=== PATIENT | male | born 1965 | race Caucasian/White ===

== ENCOUNTER 2018-02-24 16:58 | Inpatient (IN) ==
[2018-02-25] MEDS: Sod Chloride 0.9% Inj 1,000 ML IV.CONT SCH ×4 (00:07→18:22)
[2018-02-25] MEDS: HYDROmorphone PF Inj 2 MG/ML Vial IV.PUSH PRN ×6 (00:07→22:05)
[2018-02-25] MEDS: Enoxaparin Inj 40 MG/0.4 ML Syringe SQ SCH ×2 (02:05→22:06)
[2018-02-25 07:03] LABS: Baso % (Auto) 0.2 % (0.0-2.0); Eos % (Auto) 0.1 % (0.0-4.0); Hematocrit 42.6 % (39.0-51.0); Lymph # (Auto) 1.5 th/mm3 (1.0-4.8); Lymph % (Auto) 6.8 % (9.0-44.0); Mean Corpuscular HGB Conc 35.1 % (32.0-36.0); Mean Corpuscular Hemoglobin 33.5 pg (27.0-34.0); Mean Corpuscular Volume 95.4 fL (80.0-100.0); Mean Platelet Volume 8.4 fL (7.0-11.0); Mono # (Auto) 1.6 th/mm3 (0.0-0.9); Neut # (Auto) 19.1 th/mm3 (1.8-7.7); Neut % (Auto) 85.9 % (16.0-70.0); Platelet Count 382 th/mm3 (150-450); Red Blood Count 4.47 mil/mm3 (4.50-5.90); Red Cell Distribution Width 14.8 % (11.6-17.2); White Blood Count 22.2 th/mm3 (4.0-11.0)
[2018-02-25 07:06] LABS: Potassium 4.6 meq/L (3.5-5.1)
[2018-02-25 07:10] LABS: Calcium 8.1 mg/dL (8.5-10.1); Carbon Dioxide 27.8 meq/L (21.0-32.0)
--- NOTE | 2018-02-25 09:04 | P.HP ---
History of Present Illness Primary Care Physician: No Primary Care Physician Chief Complaint: Abdominal pain History of Present Illness: This is a 52-year-old male patient with a known medical history of alcoholism and previous diverticulitis with perforation and history of pancreatitis who presented to the ED with diffuse abdominal pain 3 weeks. It is [place]- speaking and [employer] video interpreting has been used to assist with interpretation. Patient states that his abdominal pain worsened acutely yesterday, he states that the pain is diffuse in his abdomen and worsens in his right lower quadrant. Patient states that the pain is worse with movement. States he did take Tylenol 3 and Pepto-Bismol at home with minimal relief of his pain. He does admit to nausea with one bout of vomiting yesterday. He admits to drinking 4 beers a day since his teen years. Denies ever having withdrawal from alcohol. He does admit to a bout of acute pancreatitis 10 years ago and history of diverticulitis roughly 5 years ago, at that time he did have a perforation of his colon and he required bowel resection. 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 He denies any recent fever, chills, cough, shortness of breath, diarrhea or dysuria. History of CAD with PA several years ago with no stent placement. He does take his medications daily. Including an aspirin. His last drink was Saturday. Lipase on presentation 1007. - Diagnosis (1) Acute pancreatitis Review of Systems All other systems reviewed negative except as stated in HPI PMFSH - History History Provided By: Patient - Medical History Medical History: Medical History (Last Updated 02/25/18 @ 09:18 by Eliz Pickett) Alcoholism Asthma Colonoscopy planned Diverticulitis Hypertension Pancreatitis - Surgical History Surgical History: Surgical History (Last Updated 02/24/18 @ 17:02 by Eliz Lin, RN) H/O eye surgery - Family History Family History: Family History (Last Updated 02/25/18 @ 09:17 by Eliz Pickett) Mother Breast cancer - Tobacco History Second Hand Smoke Exposure: Yes Tobacco Use In Past 30 Days: Yes Smoking Status: Smoker, status unknown Tobacco Type: Cigarettes - Alcohol History How Often Do You Have a Drink Containing Alcohol: 4 or more times a week - Substance Use History Substance History: Active Abuse - Substance Use Type Alcohol Status: Active Route Used: By Mouth Frequency: 3-4 per day Last Used: yesterday Reason for Use: Calm Down, Fit In, Peer Pressure - Immunization History Tetanus Immunization: Unable to Assess Hx Influenza Vaccine This Season: Yes Medications and Allergies Active Medications: Active Medications Albuterol (Albuterol Neb (Prn)) 2.5 mg NEB Q2HR NEB PRN PRN Reason: SHORTNESS OF BREATH/WHEEZING Enoxaparin Sodium (Lovenox Inj) 40 mg SQ Q24H ANIA Last Admin: 02/25/18 02:05 Dose: 40 mg Hydromorphone HCl (Dilaudid Pf Inj) 0.5 mg IV.PUSH Q4H PRN PRN Reason: pain > 4 Last Admin: 02/25/18 08:04 Dose: 0.5 mg Sodium Chloride (Ns Inj) 1,000 mls @ 100 mls/hr IV.CONT .Q10H [facility] Last Admin: 02/25/18 08:05 Dose: 100 mls/hr Ondansetron HCl (Zofran Inj) 4 mg IV.PUSH Q6H PRN PRN Reason: NAUSEA OR VOMITING Allergies Allergy/AdvReac Type Severity Reaction Status Date / Time morphine Allergy Agitation Verified 02/24/18 17:27 Penicillins Allergy Rash, Verified 02/24/18 17:27 Generalized Home Medications Medication Instructions Recorded Confirmed Type aspirin [Adult Low Dose Aspirin] 81 mg PO DAILY 02/24/18 02/25/18 History atorvastatin [Lipitor] 10 mg PO DAILY 02/24/18 02/25/18 History lactobacillus combination no.4 1 dose PO DAILY 02/24/18 02/25/18 History [Probiotic] lisinopril 40 mg PO DAILY 02/24/18 02/25/18 History metoprolol tartrate 50 mg PO DAILY 02/24/18 02/25/18 History montelukast 10 mg PO QPM 02/25/18 02/25/18 History Exam Vital signs: Vital Signs 02/25/18 00:00 02/25/18 00:33 02/25/18 04:36 Temperature 98.4 F 99.8 F H Pulse Rate 119 H 112 H Respiratory Rate 18 18 20 Blood Pressure 183/118 H 144/97 H Pulse Oximetry 96 92 L 02/25/18 08:44 Temperature 98.5 F Pulse Rate 116 H Respiratory Rate 18 Blood Pressure 144/95 H Pulse Oximetry 94 L Intake & Output 02/24/18 02/25/18 02/25/18 18:59 06:59 18:59 Intake Total 200 / 200 1000 / 1000 Balance 200 / 200 1000 / 1000 Weight 84.3 kg Intake: IV 1000 / 1000 NS Inj 1,000 ML @ 100 mls/hr IV 1000 / 1000 .CONT .Q10H ANIA Rx#:[id number] Oral 200 / 200 Other: # Voids 2 Date of Last Bowel Movement 02/23/18 Weight On Admission 84.3 kg Narrative: GENERAL: Well-developed, well-nourished patient in NAD. SKIN: Warm and dry. No rash. Mild jaundice. HEAD: Normocephalic. Atraumatic. EYES: Pupils equal and round. No scleral icterus. No injection or drainage. ENT: No nasal bleeding or discharge. Mucous membranes pink and moist. NECK: Supple. Trachea midline. CARDIOVASCULAR: Regular rate and rhythm. S1, S2 noted. No murmur appreciated. RESPIRATORY: No accessory muscle use. Clear to auscultation. Breath sounds equal bilaterally. GASTROINTESTINAL: Abdomen soft, round, firm. Mild tenderness to right upper lower quadrant.. Normoactive bowel sounds x4. MUSCULOSKELETAL: No obvious deformities. Extremities without clubbing, cyanosis , or edema. NEUROLOGICAL: Awake and alert. No obvious cranial nerve deficits. Motor grossly within normal limits. 5/5 muscle strength in bilateral upper and lower extremities. Normal speech. PSYCHIATRIC: Appropriate mood and affect; insight and judgment normal. Results - Labs CBC & Chem 7: 02/25/18 06:10 02/25/18 06:10 Labs: Laboratory Results - last 24 hr 02/25/18 02/25/18 06:10 06:10 CBC w Diff Slide review pending WBC 22.2 H RBC 4.47 L Hgb 15.0 Hct 42.6 MCV 95.4 MCH 33.5 MCHC 35.1 RDW 14.8 Plt Count 382 MPV 8.4 Neut % (Auto) 85.9 H Lymph % (Auto) 6.8 L [place] % (Auto) 7.0 Eos % (Auto) 0.1 Baso % (Auto) 0.2 Neut # (Auto) 19.1 H Lymph # (Auto) 1.5 [place] # (Auto) 1.6 H Eos # (Auto) 0.0 Baso # (Auto) 0.0 WBC Differential . Diff Scan Auto diff confirmed Differential Comment . Sodium 135 L Potassium 4.6 Chloride 100 Carbon Dioxide 27.8 Anion Gap 7 BUN 8 Creatinine 0.98 Estimated GFR 80 L Random Glucose 121 H Calcium 8.1 L Lipase 1007 H Caprini VTE Risk Assessment Caprini VTE Risk Assessment: No/Low Risk (score <= 1) Caprini Risk Assessment Model: Point Value = 1 Point Value = 2 Point Value = 3 Point Value = 5 Age 41-60 Minor surgery BMI > 25 kg/m2 Swollen legs Varicose veins or History of unexplained or recurrent spontaneous Oral contraceptives or hormone replacement Sepsis (< 1 month) Serious lung disease, including pneumonia (< 1 month) Abnormal pulmonary function Acute myocardial infarction Congestive heart failure (< 1 month) History of inflammatory bowel disease Medical patient at bed rest Age 61-74 Arthroscopic surgery Major open surgery (> 45 min) Laparoscopic surgery (> 45 min) Malignancy Confined to bed (> 72 hours) Immobilizing plaster cast Central venous access Age >= 75 History of VTE Family history of VTE Factor V Leiden Prothrombin [id number] Lupus anticoagulant Anticardiolipin antibodies Elevated serum homocysteine Heparin-induced thrombocytopenia Other congenital or acquired thrombophilia Stroke (< 1 month) Elective arthroplasty Hip, pelvis, or leg fracture Acute spinal cord injury (< 1 month) Prophylaxis Regimen: Total Risk Factor Score Risk Level Prophylaxis Regimen 0-1 Low Early ambulation 2 Moderate Order ONE of the following: *Sequential Compression Device (SCD) *Heparin 5000 units SQ BID 3-4 Higher Order ONE of the following medications: *Heparin 5000 units SQ TID *Enoxaparin/Lovenox 40 mg SQ daily (WT < 150 kg, CrCl > 30 mL/min) *Enoxaparin/Lovenox 30 mg SQ daily (WT < 150 kg, CrCl > 10-29 mL/min) *Enoxaparin/Lovenox 30 mg SQ BID (WT < 150 kg, CrCl > 30 mL/min) AND/OR *Sequential Compression Device (SCD) 5 or more Highest Order ONE of the following medications: *Heparin 5000 units SQ TID (Preferred with Epidurals) *Enoxaparin/Lovenox 40 mg SQ daily (WT < 150 kg, CrCl > 30 mL/min) *Enoxaparin/Lovenox 30 mg SQ daily (WT < 150 kg, CrCl > 10-29 mL/min) *Enoxaparin/Lovenox 30 mg SQ BID (WT < 150 kg, CrCl > 30 mL/min) AND *Sequential Compression Device (SCD) Assessment and Plan - Assessment (1) Acute pancreatitis Code(s): K85.90 - Acute pancreatitis without necrosis or infection, unspecified Status: Acute - Plan This is a 51-year-old male patient with: Acute pancreatitis suspect secondary to chronic alcoholism -Patient presented with abdominal pain, nausea and vomiting. Secondary to alcoholism. Lipase 1700 on presentation, trending down. -Abdominal CT obtained in ED and reviewed showing pseudocyst with findings of acute pancreatitis. -Patient states that the pseudocyst is chronic and was present 10 years ago on exam. -Pain control with Dilaudid IV as needed per pain scale. -Liquid diet. Continue IV fluids. -Supportive care. Sepsis -Met criteria with tachycardia and leukocytosis, white blood cell 22,000. No fevers. -This is likely secondary to acute pancreatitis and stress response. Will continue to monitor. -Will rule out any infection. Add CXR, UA and blood cultures. Follow growth. Add lactic acid. -Tachycardia noted, HR 110's. Restarted home metoprolol. Continue to monitor tele. Should improve. Continue IVF. -Follow CBC in am. Hypertension, chronic -Monitor BP trends. Continue home medications. Alcoholism Elevated LFTs -Encourage alcohol cessation. -Placed on CIWA protocol, monitor for any withdrawals. DVT prophylaxis: SCDs. Ambulation. Lovenox. Discharge Planning: Awaiting clinical improvement and sepsis workup.
[2018-02-25] MEDS ORDERED: Metoprolol Tartrate 50 MG Tablet PO ONE (09:10)
[2018-02-25] MEDS ORDERED: Lisinopril 20 MG Tablet PO ONE (09:10)
[2018-02-25] MEDS: Lactobacillus Acidophilus/L. Spores Tablet PO SCH (09:23)
[2018-02-25] MEDS: Metoprolol Tartrate 50 MG Tablet PO SCH (09:23)
[2018-02-25] MEDS: Lisinopril 20 MG Tablet PO SCH (09:24)
[2018-02-25 10:13] LABS: Albumin 2.8 g/dL (3.4-5.0)
[2018-02-25 10:18] LABS: Total Protein 7.2 g/dL (6.4-8.2)
--- NOTE | 2018-02-25 13:24 | XR ---
EXAM DATE: 02/25/2018 1:05 PM EDT AGE/SEX: 52 years / Male INDICATIONS: Short of breath. CLINICAL DATA: This is the patient's subsequent encounter. Patient reports that signs and symptoms h ave been present for 3 days and indicates a pain score of 0/10. MEDICAL/SURGICAL HISTORY: Asthma. Hypertension. None. COMPARISON: No prior exams available for comparison. FINDINGS: A single AP view of the chest demonstrates the lungs to be symmetrically aerated without evidence of mass, infiltrate or effusion. The cardiomediastinal contours are unremarkable. Osseous structures a re intact. Mild interstitial lung disease left lung base CONCLUSION: Mild interstitial lung disease left lung base. Otherwise unremarkable single view the chest Electronically signed by: Carlos Kenny MD 02/25/2018 1:22 PM EDT
[2018-02-25] MEDS ORDERED: Temazepam 15 MG Capsule PO PRN (15:07)
[2018-02-25 16:01] LABS: Bilirubin,Urine Negative (Negative); Clarity,Urine Clear (Clear); Color,Urine Yellow (Yellw/Straw); Glucose,Urine (UA) Negative (Negative); Leukocyte Esterase,Urine Negative (Negative); Nitrite,Urine Negative (Negative); PH,Urine 7.5 (5.0-8.5)
[2018-02-25 16:05] LABS: RBC,Urine 0-3 /hpf (0-3); Squamous Epithelial Cell,Urine 0-5 /hpf (0-5)
[2018-02-25] MEDS: Acetaminophen 325 MG Tablet PO PRN (21:15)
[2018-02-25] MEDS: Montelukast 10 MG Tablet PO SCH (21:16)
[2018-02-26] MEDS: HYDROmorphone PF Inj 2 MG/ML Vial IV.PUSH PRN ×2 (02:41→14:03)
[2018-02-26] MEDS: Sod Chloride 0.9% Inj 1,000 ML IV.CONT SCH ×2 (05:41→16:23)
[2018-02-26 06:34] LABS: Baso # (Auto) 0.1 th/mm3 (0.0-0.2); Baso % (Auto) 0.6 % (0.0-2.0); Eos # (Auto) 0.1 th/mm3 (0.0-0.4); Eos % (Auto) 0.6 % (0.0-4.0); Hematocrit 39.7 % (39.0-51.0); Hemoglobin 13.5 gm/dL (13.0-17.0); Lymph # (Auto) 1.5 th/mm3 (1.0-4.8); Lymph % (Auto) 7.6 % (9.0-44.0); Mean Corpuscular HGB Conc 34.1 % (32.0-36.0); Mean Corpuscular Hemoglobin 33.3 pg (27.0-34.0); Mean Corpuscular Volume 97.6 fL (80.0-100.0); Mono # (Auto) 1.4 th/mm3 (0.0-0.9); Mono % (Auto) 6.9 % (0.0-8.0); Neut # (Auto) 16.9 th/mm3 (1.8-7.7); Neut % (Auto) 84.3 % (16.0-70.0); Platelet Count 303 th/mm3 (150-450); Red Blood Count 4.06 mil/mm3 (4.50-5.90); Red Cell Distribution Width 14.1 % (11.6-17.2)
[2018-02-26 06:57] LABS: Platelet Estimate Normal (Normal); Platelet Morphology Normal (Normal); RBC Morphology Normal (Normal)
[2018-02-26] MEDS: Metoprolol Tartrate 50 MG Tablet PO SCH (08:47)
[2018-02-26] MEDS: Lisinopril 20 MG Tablet PO SCH (08:47)
[2018-02-26] MEDS: Lactobacillus Acidophilus/L. Spores Tablet PO SCH (08:47)
--- NOTE | 2018-02-26 09:25 | P.PNIM ---
Subjective Interval history: Follow-up acute pancreatitis and sepsis. Patient seen and examined, lying in bed comfortably no apparent distress. Patient states he feels much improved today. His pain is well controlled with prescribed pain medications. He is tolerating clear liquid diet. Has been ambulating well with no pain. Patient did spike a temp of 101.2 overnight. UA is negative. Chest x-ray negative. Will continue to monitor, source is unknown at this time. For now patient is afebrile. Vital signs stable. Physical Exam Vital signs: Vital Signs 02/25/18 12:09 02/25/18 16:20 02/25/18 17:27 Temperature 99.0 F 99.1 F Pulse Rate 101 H 113 H 116 H Respiratory Rate 18 18 Blood Pressure 160/114 H 170/101 H 138/85 Pulse Oximetry 93 L 92 L 02/25/18 20:00 02/26/18 00:00 02/26/18 08:00 Temperature 101.2 F H 99.7 F H 98.7 F Pulse Rate 126 H 110 H 119 H Respiratory Rate 18 18 19 Blood Pressure 148/90 H 129/82 155/92 H Pulse Oximetry 92 L 93 L 93 L Intake & Output 02/25/18 02/26/18 02/26/18 18:59 06:59 18:59 Intake Total 1999 1000 / 1000 Balance 1999 1000 / 1000 Intake: IV 1999 1000 / 1000 NS Inj 1,000 ML @ 100 mls/hr IV 1999 1000 / 1000 .CONT .Q10H ANIA Rx#:[id number] Other: # Voids 3 3 Date of Last Bowel Movement 02/23/18 Narrative: GENERAL: Well-developed, well-nourished patient in [facility]. SKIN: Warm and dry. No rash. HEAD: Normocephalic. Atraumatic. EYES: Pupils equal and round. No scleral icterus. No injection or drainage. ENT: No nasal bleeding or discharge. Mucous membranes pink and moist. NECK: Supple. Trachea midline. CARDIOVASCULAR: Regular rate and rhythm. S1, S2 noted. No murmur appreciated. RESPIRATORY: No accessory muscle use. Clear to auscultation. Breath sounds equal bilaterally. GASTROINTESTINAL: Abdomen soft, mild tenderness to palpation of right and lower quadrants, round. Normoactive bowel sounds x4. MUSCULOSKELETAL: No obvious deformities. Extremities without clubbing, cyanosis , or edema. NEUROLOGICAL: Awake and alert. No obvious cranial nerve deficits. Motor grossly within normal limits. 5/5 muscle strength in bilateral upper and lower extremities. Normal speech. PSYCHIATRIC: Appropriate mood and affect; insight and judgment normal. Results - Labs CBC & Chem 7: 02/26/18 05:55 02/25/18 06:10 Laboratory Results - last 24 hr 02/25/18 02/25/18 02/25/18 06:10 13:38 15:45 CBC w Diff WBC RBC Hgb Hct MCV MCH MCHC RDW Plt Count MPV Neut % (Auto) Lymph % (Auto) [place] % (Auto) Eos % (Auto) Baso % (Auto) Neut # (Auto) Lymph # (Auto) [place] # (Auto) Eos # (Auto) Baso # (Auto) WBC Differential Diff Scan Differential Comment Platelet Estimate Platelet Morphology RBC Morphology Lactic Acid 1.2 Total Bilirubin 0.6 Direct Bilirubin 0.2 Indirect Bilirubin 0.4 AST 26 ALT 26 Alkaline Phosphatase 123 H Total Protein 7.2 D Albumin 2.8 L Ur Collection Type Clean catch Urine Color Yellow Urine Clarity Clear Urine pH 7.5 Ur Specific [place] 1.020 Urine Protein 100 H Urine Glucose (UA) Negative Urine Ketones Negative Urine Occult Blood Trace Urine Nitrate Negative Urine Bilirubin Negative Urine Urobilinogen 1.0 Ur Leukocyte Esterase Negative Urine RBC 0-3 Ur Squamous Epith Cells 0-5 Micro UA Comment Culture not ind Ur Microscopic Review Microscopic reviewed Urine Culture Comments Culture not ind 02/26/18 05:55 CBC w Diff Slide review pending WBC 20.0 H RBC 4.06 L Hgb 13.5 Hct 39.7 MCV 97.6 MCH 33.3 MCHC 34.1 RDW 14.1 Plt Count 303 MPV 8.0 Neut % (Auto) 84.3 H Lymph % (Auto) 7.6 L [place] % (Auto) 6.9 Eos % (Auto) 0.6 Baso % (Auto) 0.6 Neut # (Auto) 16.9 H Lymph # (Auto) 1.5 [place] # (Auto) 1.4 H Eos # (Auto) 0.1 Baso # (Auto) 0.1 WBC Differential . Diff Scan Auto diff confirmed Differential Comment . Platelet Estimate Normal Platelet Morphology Normal RBC Morphology Normal Lactic Acid Total Bilirubin Direct Bilirubin Indirect Bilirubin AST ALT Alkaline Phosphatase Total Protein Albumin Ur Collection Type Urine Color Urine Clarity Urine pH Ur Specific [place] Urine Protein Urine Glucose (UA) Urine Ketones Urine Occult Blood Urine Nitrate Urine Bilirubin Urine Urobilinogen Ur Leukocyte Esterase Urine RBC Ur Squamous Epith Cells Micro UA Comment Ur Microscopic Review Urine Culture Comments - Imaging Impressions Chest X-Ray 02/25/18 11:46 CONCLUSION: Mild interstitial lung disease left lung base. Otherwise unremarkable single view the chest Assessment and Plan - Assessment (1) Acute pancreatitis Code(s): K85.90 - Acute pancreatitis without necrosis or infection, unspecified Status: Acute - Plan This is a 51-year-old male patient with: Acute pancreatitis suspect secondary to chronic alcoholism -Patient presented with abdominal pain, nausea and vomiting. Secondary to alcoholism. Lipase 1700 on presentation, trending down. Pain well controlled. Tolerating full liquid diet. -Abdominal CT obtained in ED and reviewed showing pseudocyst with findings of acute pancreatitis. -Patient states that the pseudocyst is chronic and was present 10 years ago on exam. Spoke to general surgery who recommends GI consult for evaluation. Will continue to monitor, possibly may be outpatient followup. For now evaluating febrile illness and SIRS. Source unknown at this time. -Pain control with Dilaudid IV as needed per pain scale. -Liquid diet, tolerating well. Will advance to full liquid. Continue IV fluids. -Supportive care. SIRS -Met criteria with tachycardia and leukocytosis, white blood cell 22,000, fever overnight 101.2. Source unknown at this time. -Will rule out any infection. CXR reviewed and negative for any acute process. UA negative. BC pending, follow growth. Lactic acid normal. -Tachycardia noted, HR 110's. Restarted home metoprolol. Continue to monitor tele. Continue IVF for now. -Will start on Levaquin and Flagyl for gram negative coverage, possibly GI source. Allergy to penicillins. -Follow CBC in am. Hypertension, chronic -Monitor BP trends. Continue home medications. Alcoholism Elevated LFTs -Encourage alcohol cessation. -Placed on CIWA protocol, monitor for any withdrawals. No signs of withdrawal at this time. DVT prophylaxis: SCDs. Ambulation. Lovenox. Discharge Planning: Awaiting clinical improvement and sepsis workup.
[2018-02-26] MEDS ORDERED: levoFLOXacin 750 MG Tablet PO SCH (11:00)
[2018-02-26] MEDS: metroNIDAZOLE 500 MG Tablet PO SCH ×3 (11:20→23:55)
[2018-02-26] MEDS ORDERED: Magnesium Citrate Liq 300 ML Bottle PO ONE (11:51)
--- NOTE | 2018-02-26 12:14 | MB ---
cc: Cortez Biswas MD, Lydia T MD DATE: 02/26/2018 GASTROENTEROLOGY CONSULTATION ATTENDING PHYSICIAN: Dr. Ruth Vega. REASON FOR CONSULTATION: Acute pancreatitis secondary to alcohol. HISTORY OF PRESENT ILLNESS: Mr. Mir is a 52-year-old gentleman with previous history of pancreatitis secondary to alcohol as well as previous history of diverticulitis; ended up with complications requiring surgery about 5 years ago. He admits to drinking alcohol; was basically admitted with a 2-week history of upper abdominal pain radiating to the left upper quadrant. Blood work and imaging studies are consistent with acute pancreatitis. REVIEW OF SYSTEMS: Currently, the patient is complaining of some abdominal discomfort in the upper abdomen. Otherwise, no symptoms. Reports he has had no bowel movements for 5 days. PAST MEDICAL HISTORY: Asthma, diverticulitis, hypertension, history of pancreatitis in the past. PAST SURGICAL HISTORY: Eye surgery, colon surgery. FAMILY HISTORY: Significant for breast cancer. SOCIAL HISTORY: Significant for smoking as well as for alcohol. CURRENT MEDICATIONS: Include: 1. Albuterol. 2. Lovenox. 3. Levaquin. 4. Flagyl. ALLERGIES: MORPHINE AND PENICILLIN. PHYSICAL EXAMINATION: GENERAL: Reveals a well-nourished man in no apparent distress. VITAL SIGNS: Stable. HEAD AND NECK: Anicteric sclerae. CHEST: Bilateral air entry with rales. ABDOMEN: Distended, soft; tenderness and some guarding in the left upper quadrant. CENTRAL NERVOUS SYSTEM: Nonfocal. LABORATORY DATA: White cell count of 20,000, hemoglobin 13.5. Creatinine 0.98. Liver functions are normal. Lipase 1007. IMAGING: CT of the abdomen and pelvis reveals inflammatory and edematous changes around the body and tail of the pancreas with questionable early pseudocyst formation. Moderate fatty infiltration of the liver. IMPRESSION: Acute pancreatitis. RECOMMENDATIONS: Liquid diet as tolerated. Aggressive IV fluid hydration. Continue antibiotics at this time; one dose of magnesium citrate for constipation. Further recommendations to follow. Thank you for this referral. MD TYRESE Fuentes/anita , 11:56 AM , 12:04 PM
[2018-02-26] MEDS: Acetaminophen 325 MG Tablet PO PRN (20:12)
[2018-02-26] MEDS: Montelukast 10 MG Tablet PO SCH (20:12)
[2018-02-26 21:27] VITALS: RESP 20
[2018-02-26] MEDS: Enoxaparin Inj 40 MG/0.4 ML Syringe SQ SCH (22:00)
[2018-02-27] MEDS: Sod Chloride 0.9% Inj 1,000 ML IV.CONT SCH (02:25)
[2018-02-27] MEDS: metroNIDAZOLE 500 MG Tablet PO SCH (06:27)
[2018-02-27] MEDS: Lactobacillus Acidophilus/L. Spores Tablet PO SCH (08:10)
[2018-02-27] MEDS: Metoprolol Tartrate 50 MG Tablet PO SCH (08:10)
[2018-02-27] MEDS: Lisinopril 20 MG Tablet PO SCH (08:10)
--- NOTE | 2018-02-27 08:47 | P.DS ---
Date of admission: 02/25/18 13:41 Primary care physician: No Primary Care Physician Brief History from admission: This is a 52-year-old male patient with a known medical history of alcoholism and previous diverticulitis with perforation and history of pancreatitis who presented to the ED with diffuse abdominal pain 3 weeks. It is Samoan- speaking and [employer] video interpreting has been used to assist with interpretation. Patient states that his abdominal pain worsened acutely yesterday, he states that the pain is diffuse in his abdomen and worsens in his right lower quadrant. Patient states that the pain is worse with movement. States he did take Tylenol 3 and Pepto-Bismol at home with minimal relief of his pain. He does admit to nausea with one bout of vomiting yesterday. He admits to drinking 4 beers a day since his teen years. Denies ever having withdrawal from alcohol. He does admit to a bout of acute pancreatitis 10 years ago and history of diverticulitis roughly 5 years ago, at that time he did have a perforation of his colon and he required bowel resection. 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 He denies any recent fever, chills, cough, shortness of breath, diarrhea or dysuria. History of CAD with OK several years ago with no stent placement. He does take his medications daily. Including an aspirin. His last drink was Saturday. Lipase on presentation 1007. Patient update on day of discharge: Follow-up acute pancreatitis. Patient seen and examined, lying in bed comfortably no apparent distress. Much improved. Doing well. Tolerating full liquid diet without any abdominal pain, nausea and vomiting. Reports a bowel movement overnight. Is stable and will be discharged home. DS: Diagnosis - Discharge Diagnosis (1) Acute pancreatitis Status: Acute DS: Medications - Discharge Medications Prescriptions: levofloxacin 750 mg PO DAILY@1100 #4 tab metoprolol tartrate 50 mg PO BID 30 Days #60 tab metronidazole 500 mg PO Q6HR 4 Days tab DS: Summary Hospital Course: This is a 51-year-old male patient who presented with acute pancreatitis suspect secondary to chronic alcoholism. Patient presented with abdominal pain, nausea and vomiting. Secondary to alcoholism. Lipase 1700 on presentation, trending down. Pain well controlled. Tolerating full liquid diet. Abdominal CT obtained in ED and reviewed showing pseudocyst with findings of acute pancreatitis. Patient states that the pseudocyst is chronic and was present 10 years ago on exam. Spoke to general surgery who recommends GI consult for evaluation. GI saw patient during hospitalization, no further recs. Pain control with Dilaudid IV as needed per pain scale during hospitalization. Liquid diet, tolerating well. Initially met SIRs criteria with tachycardia and leukocytosis, white blood cell 22,000, fever overnight 101.2. Infection ruled out. Probably inflammatory related. CXR reviewed and negative for any acute process. UA negative. BC no growth to date. Lactic acid normal. Started on Levaquin and Flagyl for gram neg coverage. History of alcoholism, presented with elevated LFTs. Encourage alcohol cessation. Desires to quit. DC home follow up PCP. - Time Spent with Patient Total time spent providing and/or coordinating discharge services: Greater than 30 minutes - Quality: VTE Deep Vein Thrombosis/Pulmonary Embolism Present on Admission: No Exam Vital signs: Vital Signs 02/26/18 12:00 02/26/18 16:00 02/26/18 20:00 Temperature 98.4 F 97.7 F 98.9 F Pulse Rate 98 H 109 H 114 H Respiratory Rate 19 19 20 Blood Pressure 172/100 H 133/96 H 147/95 H Pulse Oximetry 95 95 95 02/27/18 00:00 02/27/18 04:00 Temperature 98.8 F 96.6 F L Pulse Rate 110 H 102 H Respiratory Rate 20 20 Blood Pressure 156/90 H 160/100 H Pulse Oximetry 94 L 96 Intake & Output 02/26/18 02/27/18 02/27/18 18:59 06:59 18:59 Intake Total 1000 / 1000 1480 / 1480 Output Total 5 / 5 Balance 1000 / 1000 1475 / 1475 Weight 83.2 kg Intake: IV 1000 / 1000 1000 / 1000 NS Inj 1,000 ML @ 100 mls/hr IV 1000 / 1000 1000 / 1000 .CONT .Q10H ANIA Rx#:[id number] Oral 480 / 480 Output: Stool 5 / 5 Other: # Voids 6 Date of Last Bowel Movement 02/26/18 # Bowel Movements 0 Narrative: GENERAL: Well-developed, well-nourished patient in NAD. SKIN: Warm and dry. No rash. HEAD: Normocephalic. Atraumatic. EYES: Pupils equal and round. No scleral icterus. No injection or drainage. ENT: No nasal bleeding or discharge. Mucous membranes pink and moist. NECK: Supple. Trachea midline. CARDIOVASCULAR: Regular rate and rhythm. S1, S2 noted. No murmur appreciated. RESPIRATORY: No accessory muscle use. Clear to auscultation. Breath sounds equal bilaterally. GASTROINTESTINAL: Abdomen soft, non-tender, nondistended. Round. No tenderness. Normoactive bowel sounds x4. MUSCULOSKELETAL: No obvious deformities. Extremities without clubbing, cyanosis , or edema. NEUROLOGICAL: Awake and alert. No obvious cranial nerve deficits. Motor grossly within normal limits. 5/5 muscle strength in bilateral upper and lower extremities. Normal speech. PSYCHIATRIC: Appropriate mood and affect; insight and judgment normal. Results Procedures completed during hospitalization: None. Labs on day of discharge: Labs from last 24 hours 02/26/18 05:55 Lipase 345 Preliminary micro results at discharge 02/25/18 13:31 Aerobic Blood Culture - Preliminary Blood - Peripheral No growth in 1 day Anaerobic Blood Culture - Preliminary No growth in 1 day 02/25/18 13:38 Aerobic Blood Culture - Preliminary Blood - Peripheral No growth in 1 day Anaerobic Blood Culture - Preliminary No growth in 1 day - Impressions ITS Impressions Chest X-Ray 02/25/18 11:46 CONCLUSION: Mild interstitial lung disease left lung base. Otherwise unremarkable single view the chest Discharge Plan - Discharge Disposition Patient Disposition: 01 Discharge Home - Discharge Condition Condition: Stable - Discharge Order Discharge Orders: Discharge Order (Routine); Ordered 02/27/18 Ordered By: Eliz Pickett - Discharge Details Anticipated Discharge Date: 02/27/18 Discharge Comment: OK TO DC WHEN CBC IS RESULTED AND CALLED BACK TO [place] - Physicians Team Primary Care Provider: Primary Care Chikis Phillips Attending Provider: Ramiro Maza Other Providers: Cortez Biswas MD - Rxs /Orders / Referrals /Forms Prescriptions: New levofloxacin 750 mg Tablet 750 mg PO DAILY@1100 Qty: 4 RF: 0 metronidazole 500 mg Tablet 500 mg PO Q6HR 4 Days RF: 0 Continue aspirin [Adult Low Dose Aspirin] 81 mg Tablet,Delayed Release (Dr/Ec) 81 mg PO DAILY atorvastatin [Lipitor] 10 mg Tablet 10 mg PO DAILY lactobacillus combination no.4 [Probiotic] 3 billion cell Capsule 1 dose PO DAILY lisinopril 40 mg Tablet 40 mg PO DAILY montelukast 10 mg Tablet 10 mg PO QPM Changed metoprolol tartrate 50 mg Tablet 50 mg PO BID 30 Days Qty: 60 Changed from: 50 mg oral daily Referrals: Primary Care Chikis Phillips [Primary Care Provider] - 03/05/18 ( Please call the physician's office to book the appointment to be seen within [].) - Discharge Instructions Patient Printed Instructions: Metronidazole (By mouth), Levofloxacin (By mouth) , Pancreatitis (DC)
[2018-02-27 09:06] VITALS: BP 159/98; O2SAT 95
[2018-02-27 11:01] LABS: Baso % (Auto) 0.2 % (0.0-2.0); Eos # (Auto) 0.1 th/mm3 (0.0-0.4); Eos % (Auto) 1.1 % (0.0-4.0); Hematocrit 39.2 % (39.0-51.0); Hemoglobin 13.4 gm/dL (13.0-17.0); Lymph # (Auto) 1.3 th/mm3 (1.0-4.8); Lymph % (Auto) 9.4 % (9.0-44.0); Mean Corpuscular HGB Conc 34.1 % (32.0-36.0); Mean Corpuscular Hemoglobin 33.1 pg (27.0-34.0); Mean Corpuscular Volume 97.1 fL (80.0-100.0); Mean Platelet Volume 7.7 fL (7.0-11.0); Mono # (Auto) 1.2 th/mm3 (0.0-0.9); Mono % (Auto) 8.6 % (0.0-8.0); Neut % (Auto) 80.7 % (16.0-70.0); Platelet Count 323 th/mm3 (150-450); Red Blood Count 4.03 mil/mm3 (4.50-5.90); Red Cell Distribution Width 13.6 % (11.6-17.2); White Blood Count 13.6 th/mm3 (4.0-11.0)
[2018-02-27 14:04] VITALS: PULSE 96; TEMP 98.1
[2018-02-27] MEDS ORDERED: Metoprolol Tartrate 50 MG Tablet PO SCH (21:00)
== END 2018-02-27 12:30 | disposition home or self-care (01) ==
LOC: PH3 23:15 → PHEDDLT 23:15
PROVIDERS: ADMIT Internal Medicine; ATTEND Internal Medicine